=== PATIENT | female | born 1970 | race Caucasian/White ===

== ENCOUNTER 2023-11-06 22:07 | Inpatient (IN) | payer MEDICARE ==
[~2023-11-06] VITALS: Ht 177.8 cm; Wt 114.3 kg
[2023-11-06 22:59] LABS: BASOPHILS % (AUTO) 0.2 % (0.0-2.0); EOSINOPHILS # (AUTO) 0.1 K/uL (0.0-0.7); HEMATOCRIT 40 % (33-45); HEMOGLOBIN 13.7 g/dL (11.5-14.8); LYMPHOCYTES # (AUTO) 1.7 K/uL (0.8-4.8); LYMPHOCYTES % (AUTO) 23.8 % (20.0-44.0); MEAN CORPUSCULAR HEMOGLOBIN 31 PG (26.0-33.0); MEAN CORPUSCULAR HGB CONC 34 g/dl (31.0-36.0); MEAN CORPUSCULAR VOLUME 90 fL (82-100); MONOCYTES # (AUTO) 0.5 K/uL (0.1-1.30); MONOCYTES % (AUTO) 6.9 % (2.0-12.0); NEUTROPHILS # (AUTO) 4.8 K/uL (1.8-8.9); NEUTROPHILS % (AUTO) 68.1 % (43.0-81.0); PLATELET COUNT (AUTO) 212 K/uL (150-450); RED BLOOD CELL COUNT(AUTO) 4.41 MIL/uL (4.0-5.2); RED CELL DISTRIBUTION WIDTH 13.8 % (11.5-15.0); WHITE BLOOD COUNT (AUTO) 7.1 K/uL (4.3-11.0)
[2023-11-06 23:06] LABS: CALCIUM, SERUM 8.7 mg/dL (8.5-10.1); CARBON DIOXIDE 29 mmol/L (21-32); CHLORIDE 104 mmol/L (98-107); CREATININE 0.9 mg/dL (0.6-1.3); GLUCOSE 106 mg/dL (74-106); POTASSIUM 3.9 mmol/L (3.5-5.1); SODIUM SERUM 140 mmol/L (136-145); UREA NITROGEN, BLOOD 12 mg/dL (7-18)
[2023-11-06 23:13] LABS: ALANINE AMINOTRANSFERASE 34 U/L (12-78); ALCOHOL, BLOOD < 3 mg/dL (0-10); ALKALINE PHOSPHATASE 149 U/L (46-116); ASPARTATE AMINOTRANSFERASE 18 U/L (15-37); BILIRUBIN,TOTAL 0.2 mg/dL (0.2-1.0); TOTAL PROTEIN, SERUM 6.7 g/dL (6.4-8.2)
[2023-11-06 23:17] LABS: ACETAMINOPHEN <10 ug/ml (10-30); SALICYLATE 2.2 mg/dL (2.8-20.0)
[2023-11-06 23:29] LABS: APPEARANCE,URINE SLIGHTLY CLOUDY (CLEAR); BILIRUBIN,URINE NEGATIVE (NEGATIVE); BLOOD, URINE NEGATIVE Ery/uL (NEGATIVE); COLOR,URINE YELLOW (YELLOW); KETONES,URINE NEGATIVE (NEGATIVE); LEUKOCYTE ESTERASE ,URINE 1+ (NEGATIVE); NITRITE, URINE NEGATIVE (NEGATIVE); PROTEIN,URINE NEGATIVE (NEGATIVE); UGLUCOSE NEGATIVE (NEGATIVE); UROBILINOGEN,URINE 0.2 EU/dL (0.2)
[2023-11-06 23:36] LABS: AMPHETAMINE, URINE NEGATIVE (NEGATIVE); BARBITURATE, URINE NEGATIVE (NEGATIVE); BENZODIAZEPINE, URINE NEGATIVE (NEGATIVE); CANNABINOID, URINE NEGATIVE (NEGATIVE); COCCAINE, URINE NEGATIVE (NEGATIVE); OPIATE, URINE NEGATIVE (NEGATIVE); PHENCYCLIDINE SCREEN,URINE NEGATIVE (NEGATIVE)
[2023-11-06 23:37] LABS: ADD URINE CULTURE YES; BACTERIA,URINE Many /HPF (None Seen); RBC,URINE NONE SEEN /HPF (0-2); YEAST,URINE None Seen /HPF (None Seen)
[2023-11-07] MEDS ORDERED: MAG-151 PO (09:34)
[2023-11-07] MEDS ORDERED: ARIP5TAB10 PO (09:34)
[2023-11-07] MEDS ORDERED: TEMA7.5C12 PO (09:34)
[2023-11-07] MEDS ORDERED: ACET-868 PO (09:34)
[2023-11-07] MEDS ORDERED: LEVE500T20 PO (09:34)
[2023-11-07] MEDS ORDERED: AMIN30LI2 PO (09:34)
[2023-11-07] MEDS ORDERED: CLON1TAB12 PO (09:34)
[2023-11-07] MEDS ORDERED: MAGN400O21 PO (09:34)
[2023-11-07] MEDS ORDERED: ESCI10TA PO (09:34)
[2023-11-07] MEDS ORDERED: EMTR1TAB12 PO (09:34)
[2023-11-07] MEDS ORDERED: CHOL100062 PO (09:34)
[2023-11-07] MEDS ORDERED: MULT-213 PO (09:34)
[2023-11-07] MEDS ORDERED: APIX5TAB PO (09:34)
[2023-11-07] MEDS ORDERED: MAG HYDROX/AL HYDROX/SIMETH 30 ML UDC PO PRN (11:30)
[2023-11-07] MEDS ORDERED: LORAZEPAM 1 MG TABLET PO PRN (11:30)
[2023-11-07] MEDS ORDERED: ACETAMINOPHEN 325 MG TABLET PO PRN ×2 (11:30→15:00)
[2023-11-07] MEDS ORDERED: ZOLPIDEM TARTRATE 5 MG TABLET PO PRN (11:30)
[2023-11-07 11:40] VITALS: BP 131/100; TEMP 97.5; O2SAT 95
[2023-11-07] MEDS: BLOOD SUGAR DIAGNOSTIC 1 EACH STRIP IN ONE (12:22)
[2023-11-07] MEDS: MULTIVIT W/MINERALS 1 TAB TABLET PO SCH (14:51)
[2023-11-07] MEDS: CHOLECALCIFEROL 1,000 UNIT TABLET (VIT D3) PO SCH (14:51)
[2023-11-07] MEDS ORDERED: [UNRECOGNIZED DRUG - OTHER] PO PRN (15:00)
[2023-11-07] MEDS ORDERED: MAG HYDROX PO PRN (15:00)
[2023-11-07] MEDS ORDERED: SIMETH PO PRN (15:00)
[2023-11-07] MEDS ORDERED: ALUMINUM HYD PO PRN (15:00)
[2023-11-07 16:00] VITALS: BP 100/62; TEMP 97.7; O2SAT 98
[2023-11-07] MEDS: PROSOURCE / PROSTAT (PYXIS) 30 ML UDC PO SCH (16:10)
[2023-11-07 20:17] VITALS: BP 119/88; TEMP 97.9; O2SAT 97
[2023-11-07] MEDS: LEVETIRACETAM (250 MG) 250 MG TABLET PO SCH (20:27)
[2023-11-07] MEDS: APIXABAN 5 MG TABLET PO SCH (20:28)
[2023-11-07] MEDS ORDERED: MAGNESIUM HYDROXIDE 30 ML UDC PO SCH (22:00)
[2023-11-08 07:27] LABS: ALBUMIN 2.9 g/dL (3.4-5.0); BILIRUBIN,TOTAL 0.3 mg/dL (0.2-1.0); CREATININE 0.9 mg/dL (0.6-1.3); POTASSIUM 4.1 mmol/L (3.5-5.1); TOTAL PROTEIN, SERUM 6.3 g/dL (6.4-8.2)
[2023-11-08 07:30] LABS: THYROID STIMULATING HORMONE 1.808 uIU/mL (0.358-3.74)
[2023-11-08 08:00] VITALS: BP 110/72; TEMP 98.6; O2SAT 98
[2023-11-08] MEDS: EMTRICITABINE/TENOFOVIR 1 TAB PO SCH (08:16)
[2023-11-08] MEDS ORDERED: hydrOXYzine PAMOATE 25 MG CAPSULE PO PRN (09:30)
[2023-11-08] MEDS ORDERED: TEMAZEPAM 7.5 MG CAPSULE PO PRN (09:30)
[2023-11-08] MEDS: ARIPIPRAZOLE 5 MG TABLET PO SCH (10:09)
[2023-11-08] MEDS: ESCITALOPRAM OXALATE (10 MG) 10 MG TABLET PO SCH (10:09)
[2023-11-08 16:00] VITALS: BP 105/66; TEMP 98.6; O2SAT 97
[2023-11-08 20:35] VITALS: BP 110/79; TEMP 98.4; O2SAT 95
[2023-11-09 08:00] VITALS: BP 107/73; TEMP 98; O2SAT 96
[2023-11-09 16:02] VITALS: BP 106/73; TEMP 97.8; O2SAT 99
[2023-11-09 20:11] VITALS: BP 98/57; TEMP 98.2; O2SAT 96
[2023-11-10 08:00] VITALS: BP 117/90; TEMP 98.6; O2SAT 96
[2023-11-10 16:00] VITALS: BP 117/63; TEMP 98.4; O2SAT 98
[2023-11-10 20:09] VITALS: BP 118/63; TEMP 98.4; O2SAT 98
[2023-11-11 00:06] LABS: FOLIC ACID 14.1 ng/mL (>3.0)
[2023-11-11 08:00] VITALS: BP 123/67; TEMP 97.6; O2SAT 100
[2023-11-11 16:00] VITALS: BP 117/66; TEMP 98; O2SAT 94
[2023-11-11 20:00] VITALS: BP 111/68; TEMP 97.8; O2SAT 97
[2023-11-12 08:00] VITALS: BP 124/79; TEMP 97.8; O2SAT 98
[2023-11-12] MEDS: MAGNESIUM HYDROXIDE 30 ML UDC PO PRN (09:19)
[2023-11-12 16:00] VITALS: BP 137/92; TEMP 98; O2SAT 94
[2023-11-12 20:00] VITALS: BP 113/66; TEMP 98.2; O2SAT 96
[2023-11-13 08:10] VITALS: BP 107/64; TEMP 98.1; O2SAT 97
[2023-11-13 16:03] VITALS: BP 108/63; TEMP 98; O2SAT 95
[2023-11-13 20:00] VITALS: BP 105/56; TEMP 97.9; O2SAT 98
[2023-11-14 08:00] VITALS: BP 96/62; TEMP 97.8; O2SAT 95
[2023-11-14 16:00] VITALS: BP 92/53; TEMP 98; O2SAT 96
[2023-11-14 21:08] VITALS: BP 101/64; TEMP 97.3; O2SAT 98
[2023-11-15 08:00] VITALS: BP 124/78; TEMP 97.9; O2SAT 97
[2023-11-15] MEDS: ARIPIPRAZOLE 5 MG TABLET PO SCH (08:42)
[2023-11-15 16:00] VITALS: BP 110/77; TEMP 98.7; O2SAT 96
[2023-11-15 20:17] VITALS: BP 94/50; TEMP 97.9; O2SAT 96
[2023-11-16 08:00] VITALS: BP 136/99; TEMP 97.8; O2SAT 96
== END 2023-11-16 09:45 | disposition left against medical advice (07) | DRG 885 ==
LOC: ER 22:17 → GPS 11-07 10:28
PROVIDERS: ADMIT Psychiatry & Neurology Psychiatry; ATTEND Student in an Organized Health Care Education/Training Program
DX: F33.3 Major depressive disorder, recurrent, severe with psychotic symptoms (principal); E44.0 Moderate protein-calorie malnutrition; F03.94 Unspecified dementia, unspecified severity, with anxiety; F03.93 Unspecified dementia, unspecified severity, with mood disturbance; F03.918 Unspecified dementia, unspecified severity, with other behavioral disturbance; G40.909 Epilepsy, unspecified, not intractable, without status epilepticus; Z99.3 Dependence on wheelchair; Z87.820 Personal history of traumatic brain injury; Z20.822 Contact with and (suspected) exposure to COVID-19; M62.81 Muscle weakness (generalized); Z68.36 Body mass index [BMI] 36.0-36.9, adult; F60.9 Personality disorder, unspecified; F41.9 Anxiety disorder, unspecified; F20.0 Paranoid schizophrenia
CPT/HCPCS: 36415; 70450-TC; 80053-TC; 80061-TC; 81001; 82607-TC; 82962-TC; 83921; 84443-TC; 85025-TC; 87086-TC; 97110-TC; 97116-TC; 97530-TC; G0480